=== PATIENT | male | born 1955 | race Caucasian/White ===

== ENCOUNTER 2022-10-20 15:47 | Emergency (ER) | payer MEDICARE, BC ==
[2022-10-20] VITALS (146 sets, daily range): BP systolic 78–123; BP diastolic 41–69
[~2022-10-20] VITALS: Ht 182.9 cm; Wt 69.8 kg
[~2022-10-20 15:47] MED LIST: ANUCORT-HC25 MG RE; AVALIDE1 TAB OR; BAYER ASPIRIN325 MG PO; EFFIENT10 MG OR; FENOFIBRATE160 MG PO; FLAX SEED1000 MG OR; LIDOCAINE5 % TOP; LIPITOR40 M1 PO; NIASPAN500 MG PO; OMEGA 31000 MG PO; OMEPRAZOLE40 MG PO; PRILOSEC40 MG PO; SAW PALMETT3 OR; SIMVASTATIN10 MG PO; SIMVASTATIN20 MG PO; SIMVASTATIN40 MG PO; TOPROL XL25 M1 PO
[2022-10-20 16:27] LABS: URINE BLOOD DIPSTICK NEGATIVE (NEGATIVE); URINE COLOR YELLOW; URINE GLUCOSE - DIPSTICK NEGATIVE (NEGATIVE); URINE KETONE TRACE mg/dL (NEGATIVE); URINE LEUK ESTERASE NEGATIVE (NEGATIVE); URINE PH 5.5 (4.5-8.0); URINE PROTEIN - DIPSTICK NEGATIVE (NEG-TRACE); URINE UROBILINOGEN - DIPSTICK 0.2 E.U./dL (0.2)
[2022-10-20 16:34] LABS: URINE BILIRUBIN - DIPSTICK SMALL (NEGATIVE)
[2022-10-20 16:35] LABS: URINE NITRITE - DIPSTICK NEGATIVE (Negative)
[2022-10-20 16:40] LABS: BASO% 2.9 % (0-3); EOS% 2.9 % (0-8); HEMATOCRIT 30.9 % (39.0-50.0); HEMOGLOBIN 9.8 g/dl (14.0-18.0); IMMATURE GRANULOCYTES 2.9 % (0.0-5.0); LYMPH% 51.4 % (15-41); MEAN CELL VOLUME 80.1 fL CALC (80.0-100.0); MEAN CORPUSCULAR HGB 25.4 pG CALC (26.0-32.0); MEAN CORPUSCULAR HGB CONC 31.7 g/dL CAL (32.0-36.0); MONO% 25.7 % (2-13); NEUT# 0.05 thou/uL (1.82-7.42); NEUT% 14.2 % (42-76); RED BLOOD COUNT 3.86 mill/uL (4.70-6.10); RED CELL DISTRI WIDTH 22.2 % (11.5-15.5)
[2022-10-20 16:45] LABS: BUN 13 mg/dL (8-23); BUN/CREATININE RATIO 14 (12-20 (CALC)); CHLORIDE 100 mmol/l (95-108); CREATININE 0.9 mg/dL (0.7-1.3); GFR FOR AFR.AMER. > 60 ML/MIN (>=60 (CALC)); GFR OTHER RACES > 60 ML/MIN (>=60 (CALC))
[2022-10-20 16:51] LABS: SGOT/AST 35 u/l (19-48)
[2022-10-20 17:02] LABS: ALKALINE PHOSPHATASE 172 u/l (38-126); ANION GAP 13 (6-22 (CALC)); BILIRUBIN, TOTAL 1.3 mg/dL (0.2-1.3); CARBON DIOXIDE 17 mmol/l (22-30); POTASSIUM 3.5 mmol/l (3.5-5.1); SODIUM 126 mmol/l (137-146); TOTAL PROTEIN 4.2 g/dL (6.3-8.2)
[2022-10-20] MEDS ORDERED: PRALUENT150 MG (17:18)
[2022-10-20] MEDS ORDERED: EZETIMIBE10 MG (17:19)
[2022-10-20] MEDS ORDERED: ASPIRIN81 MG PO (17:19)
[2022-10-20] MEDS ORDERED: ATORVASTATIN CA80 MG PO (17:20)
[2022-10-21] VITALS (31 sets, daily range): BP systolic 93–113; BP diastolic 60–78
== END 2022-10-20 18:30 | disposition short-term general hospital (02) ==
LOC: ED 15:47
PROVIDERS: Family Medicine
PROC: 05HM33Z Insertion of Infusion Device into Right Internal Jugular Vein, Percutaneous Approach (ICD-10-PCS; principal; 2022-10-20)
PROC: 3E043XZ Introduction of Vasopressor into Central Vein, Percutaneous Approach (ICD-10-PCS; 2022-10-20)
DX: A41.9 Sepsis, unspecified organism (principal); R65.21 Severe sepsis with septic shock; I95.9 Hypotension, unspecified; R18.8 Other ascites; C18.9 Malignant neoplasm of colon, unspecified; C78.7 Secondary malignant neoplasm of liver and intrahepatic bile duct; I10 Essential (primary) hypertension; Z79.899 Other long term (current) drug therapy; Z96.89 Presence of other specified functional implants; Z20.822 Contact with and (suspected) exposure to COVID-19
CPT/HCPCS: Q9967